=== PATIENT | male | born 1980 | race Caucasian/White ===

== ENCOUNTER 2019-03-09 23:43 | Emergency (ER) | payer OTHER ==
--- NOTE | 2019-03-10 04:52 | ER Document Report ---
ED Medical Screen (RME) - General Chief Complaint: Tremor Stated Complaint: TREMORS Time Seen by Provider: 03/10/19 04:48 Notes: 38-year-old male with polycystic kidney disease presents to the emergency department with chief complaint of tremors that started at 10:30 PM last night. Patient states he is here on vacation and when he went to lay down to go to bed he started getting the shakes like he had chills but they persisted for approxim ately 30 minutes prompting him to seek care. No loss of consciousness, was present and said there is no seizure-like activity. Patient states he was lucid the entire episode. Also, he is complaining of bilateral lower extremity edema that got acutely worse over the last 24 hours. He states that he is climbing up and [place] a [place] stairs [place] staying at and is very a ctive. He denies any unilateral leg pain or swelling. Denies any prolonged immobilization. No acute shortness of breath or chest pain. No nausea or vomiting. No diaphoresis. No other complaints Physical Exam - Vital signs Vitals: Temp Pulse Resp BP Pulse Ox 98.0 F 100 18 143/99 H 96 03/09/19 23:57 03/09/19 23:57 03/09/19 23:57 03/09/19 23:57 03/09/19 23:57 - Notes Notes: PHYSICAL EXAMINATION: Reviewed vital signs and charting by RN GENERAL: Alert, interacts well. No acute distress. HEAD: Normocephalic, atraumatic. EYES: Pupils equal and round. Extraocular movements intact. ENT: Oral mucosa moist, tongue midline. NECK: Full range of motion. Trachea midline. LUNGS: Clear to auscultation bilaterally, no wheezes, rales, or rhonchi. No respiratory distress. HEART: Regular rate and rhythm. No murmur EXTREMITIES: Moves all 4 extremities spontaneously. 1+ bilateral lower extremity nonpitting edema, No cyanosis. PSYCH: Normal affect, normal mood. 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 No rashes or lesions noted. Course - Vital Signs Vital signs: Temp Pulse Resp BP Pulse Ox 98.0 F 100 18 143/99 H 96 03/09/19 23:57 03/09/19 23:57 03/09/19 23:57 03/09/19 23:57 03/09/19 23:57
[2019-03-10 05:20] LABS: ABSOLUTE EOSINOPHILS # (AUTO) 0.2 10^3/uL (0.0-0.6); ABSOLUTE LYMPHOCYTES (AUTO) 2.1 10^3/uL (0.5-4.7); ABSOLUTE MONOCYTES (AUTO) 0.6 10^3/uL (0.1-1.4); ABSOLUTE NEUT (AUTO) 4.1 10^3/uL (1.7-8.2); BASOPHILS % (AUTO) 0.6 % (0-2); EOSINOPHILS % (AUTO) 2.9 % (0-6); HEMATOCRIT 43.4 % (37.9-51.0); HEMOGLOBIN 15.1 g/dL (13.5-17.0); LYMPHOCYTES % (AUTO) 29.8 % (13-45); MEAN CORPUSCULAR HEMOGLOBIN 30.1 pg (27.0-33.4); MEAN CORPUSCULAR HGB CONC 34.7 g/dL (32.0-36.0); MEAN CORPUSCULAR VOLUME 87 fl (80-97); MONOCYTES % (AUTO) 8.5 % (3-13); PLATELET COUNT 216 10^3/uL (150-450); RED BLOOD COUNT 4.99 10^6/uL (4.35-5.55); RED CELL DISTRIBUTION WIDTH 12.8 % (11.5-14.0); SEGMENTED NEUTROPHILS % (AUTO) 58.2 % (42-78); TOTAL CELLS COUNTED % (AUTO) 100 %
[2019-03-10 05:28] VITALS: BP 131/63
[2019-03-10 05:44] LABS: ALANINE AMINOTRANSFERASE 59 U/L (21-72); ALBUMIN 4.5 g/dL (3.5-5.0); ALKALINE PHOSPHATASE 55 U/L (38-126); ANION GAP 11 (5-19); ASPARTATE AMINO TRANSFERASE 38 U/L (17-59); BILIRUBIN,DIRECT 0.2 mg/dL (0.0-0.4); BILIRUBIN,TOTAL 0.4 mg/dL (0.2-1.3); BLOOD UREA NITROGEN 24 mg/dL (7-20); CALCIUM 9.5 mg/dL (8.4-10.2); CARBON DIOXIDE 27 mmol/L (22-30); CHLORIDE 104 mmol/L (98-107); CREATINE KINASE 70 U/L (55-170); GLUCOSE 96 mg/dL (75-110); POTASSIUM 4.1 mmol/L (3.6-5.0); SODIUM 141.8 mmol/L (137-145); TOTAL PROTEIN 7.6 g/dL (6.3-8.2)
[2019-03-10 05:56] LABS: NT PRO BNP 57 pg/mL (<125)
[2019-03-10 05:57] LABS: TROPONIN I < 0.012 ng/mL
--- NOTE | 2019-03-10 06:44 | ER Document Report ---
ED General - General Chief Complaint: Tremor Stated Complaint: TREMORS Time Seen by Provider: 03/10/19 04:48 Notes: 38-year-old male with polycystic kidney disease presents to the emergency department with chief complaint of tremors that started at 10:30 PM last night. Patient states he is here on vacation and when he went to lay down to go to bed he started getting the shakes like he had chills but they persisted for approximately 30 minutes prompting him to seek care. No loss of consciousness, was present and said there is no seizure-like activity. Patient states he was lucid the entire episode. Also, he is complaining of bilateral lower extremity edema that got acutely worse over the last 24 hours. He states that he is climbing up and down a lot of stairs at the [place] they [place] staying at and is very active. He denies any unilateral leg pain or swelling. Denies any prolonged immobilization. No acute shortness of breath or chest pain. No nausea or vomiting. No diaphoresis. No other complaints Past Medical History - Social History Smoking Status: Never Smoker Chew tobacco use (# tins/day): No Frequency of alcohol use: heavier last few days. Drug Abuse: None Family History: None Patient has suicidal ideation: No Patient has homicidal ideation: No Renal/ Medical History: Denies: Hx Peritoneal Dialysis Past Surgical History: Reports: Hx Appendectomy Review of Systems - Review of Systems Constitutional: See HPI EENT: No symptoms reported Cardiovascular: See HPI Respiratory: See HPI Gastrointestinal: See HPI Genitourinary: No symptoms reported Male Genitourinary: No symptoms reported Musculoskeletal: No symptoms reported Skin: No symptoms reported Hematologic/Lymphatic: No symptoms reported Neurological/Psychological: See HPI Physical Exam - Vital signs Vitals: Temp Pulse Resp BP Pulse Ox 98.0 F 100 18 143/99 H 96 03/09/19 23:57 03/09/19 23:57 03/09/19 23:57 03/09/19 23:57 03/09/19 23:57 - Notes Notes: PHYSICAL EXAMINATION: Reviewed vital signs and charting by RN GENERAL: Alert, interacts well. No acute distress. HEAD: Normocephalic, atraumatic. EYES: Pupils equal and round. Extraocular movements intact. ENT: Oral mucosa moist, tongue midline. NECK: Full range of motion. Trachea midline. LUNGS: Clear to auscultation bilaterally, no wheezes, rales, or rhonchi. No res piratory distress. HEART: Regular rate and rhythm. No murmur EXTREMITIES: Moves all 4 extremities spontaneously. 1+ bilateral lower extremity nonpitting edema, No cyanosis. PSYCH: Normal affect, normal mood. 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 No rashes or lesions noted. Course - Re-evaluation Re-evalutation: 03/10/19 06:45 Overall well-appearing. Patient states symptoms have resolved. Patient drank 5 or 6 bottles of water and route to the emergency department. There was no evidence of a generalized seizure as patient was conscious throughout the whole ordeal, the tremors were bilateral so I have very low concern for a focal seizure. Lab work all within normal limits, troponin negative, BNP 57, mag within normal limits. EKG showed normal sinus rhythm. I discussed with patient his lab work and his reassuring work-up and explained to him that I do not clear etiology for these tremors but everything was overall reassuring. He was sat isfied with the results and the plan moving forward. He is stable for discharge. - Vital Signs Vital signs: Temp Pulse Resp BP Pulse Ox 97.9 F 76 16 131/63 H 97 03/10/19 05:27 03/10/19 05:27 03/10/19 05:27 03/10/19 05:27 03/10/19 05:27 - Laboratory Result Diagrams: 03/10/19 05:00 03/10/19 05:00 Laboratory results interpreted by me: 03/10/19 05:00 BUN 24 H Discharge - Discharge Clinical Impression: Tremor Condition: Good Disposition: HOME, SELF-CARE Additional Instructions: You were seen in the emergency department this morning for unexplained tremors. It is unclear why you are having the symptoms but your work-up was overall very reassuring. Your lab work was all within normal limits. Your kidney function was normal. Your electrolytes were all within normal limits. Should you continue to have these types of tremors make sure you stay hydrated. Look out for the red flags that we discussed to include unilateral tremors or twitching that would be concerning for a focal seizure, unconsciousness associated with these tremors which would be very concerning for a generalized seizure, dark- colored urine and muscle cramping. It would be in your best interest to establish a primary care doctor when you get home. Please return to the emergency department if you have any other concerns. Thank you for your patience this evening.
--- NOTE | 2019-03-11 07:38 | EKG REPORT ---
SEVERITY:- NORMAL ECG - SINUS RHYTHM : Confirmed by: Dillon Aj MD 11-Mar-2019 07:36:58
== END 2019-03-10 07:00 | disposition home or self-care (01) ==
LOC: ER 23:43
DX: R25.1 Tremor, unspecified (principal); R60.0 Localized edema
CPT/HCPCS: 36415; 80053; 82550; 83735; 83880; 84484; 85025; 93005; 93010; 99284